=== PATIENT | female | born 2000 | race Two or more races ===

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

== ENCOUNTER 2022-02-01 23:46 | Emergency (ER) | payer MEDICAID, OTHER ==
[~2022-02-01] VITALS: Ht 162.6 cm; Wt 66.7 kg
[2022-02-02 01:25] VITALS: BP 121/68
== END 2022-02-02 01:30 | disposition home or self-care (01) ==
LOC: ER 23:55
DX: T78.1XXA Other adverse food reactions, not elsewhere classified, initial encounter (principal); X58.XXXA Exposure to other specified factors, initial encounter; Z91.013 Allergy to seafood
CPT/HCPCS: A4663